=== PATIENT | female | born 1965 | race Caucasian/White ===

== ENCOUNTER → 2016-10-13 | Outpatient (REF) | payer OTHER ==
[~2016-10-13] MED LIST: /HCTZ25TA PO; ASPI81TA45 OR; BUPR150T5 PO; CALC-136 PO; CALCIUM/MAG/ZINC PO; CALCTAB92 PO; CYCL5TA PO; FLAXOIL3 PO; FLAXPOW PO; HYDR1OI TOP; HYDR25TA6 OR; LAMO25TA2 PO; LIDO1PAD EX; LISI-538 PO; MOBI7.5T10 PO; MULTIVIT PO; NUCY50TA PO; OMEP20TA7 OR; PERC5TAB8 OR; PERC7.5T8 OR; POTA20TA2 OR; PRIL20CA OR; PRIL20CA PO; TRAM50TA2 PO; TRIL1TAB PO; TYLE1TAB5 PO; TYLENOL PM PO; VALT500T PO; VITA250L PO; VITAD1000T PO; VYTO10TA5 OR; WELBUTRIN PO; WELL100T PO; XANA0.5T PO; [UNRECOGNIZED DRUG - CODE] PO
== END ==
LOC: M LAB REF 11:54
PROVIDERS: ATTEND Nurse Practitioner Family
DX: D51.9 Vitamin B12 deficiency anemia, unspecified (principal)

== ENCOUNTER → 2017-10-13 | Outpatient (REF) | payer OTHER ==
[2017-10-13 18:36] LABS: APPEARANCE, URINE CLEAR (CLEAR); BACTERIA, URINE AUTO NEGATIVE (NEGATIVE); BILIRUBIN, URINE AUTO NEGATIVE (NEGATIVE); BLOOD, URINE BLOOD 1+ (NEGATIVE); COLOR, URINE YELLOW (YELLOW); GLUCOSE, URINE (UA) AUTO NEGATIVE (NEGATIVE); KETONE, URINE AUTO NEGATIVE (NEGATIVE); LEUKOCYTE ESTERASE, URINE AUTO NEGATIVE (NEGATIVE); NITRITE, URINE AUTO NEGATIVE (NEGATIVE); PROTEIN, URINE AUTO NEGATIVE (NEGATIVE); RBC, URINE AUTO 0 /HPF (0-3); SPECIFIC GRAVITY URINE AUTO 1.008 (1.002-1.035); SQUAMOUS EPITHELIAL CELL UR AU 0 /HPF (0-6); UROBILINOGEN, URINE AUTO 0.2 mg/dL (0.0-2.0); WBC, URINE AUTO 0 /HPF (0-3)
== END ==
LOC: M LAB REF 16:28
DX: N39.0 Urinary tract infection, site not specified (principal)
CPT/HCPCS: 81001

== ENCOUNTER 2018-04-14 13:46 | Emergency (ER) | payer OTHER ==
[2018-04-14 14:59] LABS: HEMATOCRIT 41.4 % (36.0-47.0); HEMOGLOBIN 13.9 g/dl (12.0-15.5); MEAN CORPUSCULAR HEMOGLOBIN 28.4 pg (27.0-33.0); MEAN CORPUSCULAR HGB CONC 33.6 g/dl (32.0-36.5); MEAN CORPUSCULAR VOLUME 84.5 fl (80.0-96.0); PLATELET COUNT, AUTOMATED 250 10^3/uL (150-450); RED CELL DISTRIBUTION WIDTH 14.3 % (11.5-14.5); WHITE BLOOD COUNT 10.8 10^3/uL (4.0-10.0)
[2018-04-14 15:25] LABS: ANION GAP 8 MEQ/L (8-16); BLOOD UREA NITROGEN 14 MG/DL (7-18); CALCIUM LEVEL 9.6 MG/DL (8.5-10.1); CARBON DIOXIDE LEVEL 28 MEQ/L (21-32); CHLORIDE LEVEL 103 MEQ/L (98-107); CREATININE FOR GFR 0.69 MG/DL (0.55-1.30); GLOMERULAR FILTRATION RATE > 60.0 (>51); GLUCOSE, FASTING 110 MG/DL (70-100); POTASSIUM SERUM 3.9 MEQ/L (3.5-5.1); SODIUM LEVEL 139 MEQ/L (136-145)
[2018-04-14] MEDS ORDERED: KETOROLAC 30 MG/ML VIAL (J1885) IV (15:30)
[2018-04-14] MEDS: traMADol 50 MG TAB PO (16:47)
== END 2018-04-14 18:27 | disposition home or self-care (01) ==
LOC: M ED 13:46
DX: M54.5 Low back pain (principal); I10 Essential (primary) hypertension; M48.00 Spinal stenosis, site unspecified; K21.9 Gastro-esophageal reflux disease without esophagitis; F33.9 Major depressive disorder, recurrent, unspecified; Z79.899 Other long term (current) drug therapy; Z88.5 Allergy status to narcotic agent
CPT/HCPCS: 72131

== ENCOUNTER → 2019-03-07 | Outpatient (CLI) | payer OTHER ==
[~2019-03-07] MED LIST changes: -/HCTZ25TA PO; -CYCL5TA PO; +CYCL5TAB5 PO; +HYDR-3644 PO; -HYDR1OI TOP; +HYDR1OIN2 TOP; -LAMO25TA2 PO; +LAMO25TA4 PO; +MOBI4TAB PO; -MOBI7.5T10 PO
--- NOTE | 2019-03-07 11:28 | REPMRS ---
Patient History The patient states she had a clinical breast exam in 01/2019. Patient is nulliparous. No known family history of cancer. 3D TOMOSYNTHESIS WAS PERFORMED. [facility] for [facility] 11.8%. Digital Woman Screen Mammo: March 07, 2019 - Exam #: [id number] Bilateral CC and MLO view(s) were taken. Technologist: Nataly Galan, Technologist Prior study comparison: May 04, 2014, bilateral digital mammo screening bilat, performed at [facility]. October 21, 2010, bilateral digital mammo screening bilat, performed at [facility]. FINDINGS: The breast tissue is heterogeneously dense. This may lower the sensitivity of mammography. There has been no change in the appearance of the mammogram from the prior studies. There is a moderate amount of residual fibroglandular tissue which is fairly symmetric. There is no interval development of dominant mass, areas of architectural distortion, or clustered microcalcification typical of malignancy. Assessment: BI-RADS/ACR category 1 mammogram. Negative Mammogram. Recommendation Routine screening mammogram in 1 year (for women over age 40). This mammogram was interpreted with the aid of an FDA-approved computer-aided dectection system. Electronically Signed By: Jakob Brewer MD 03/07/19 0585
== END ==
LOC: M WHC 10:00
PROVIDERS: ATTEND Nurse Practitioner Family
DX: Z12.31 Encounter for screening mammogram for malignant neoplasm of breast (principal)

== ENCOUNTER → 2019-03-25 | Outpatient (REF) | payer OTHER ==
[2019-03-25 13:54] LABS: THYROGLOBULIN ANTIBODY 30.6 U/ML (<60.0); THYROID PEROXIDASE ANTIBODY < 28.0 U/ML (<60.0)
== END ==
LOC: M LAB REF 12:27
PROVIDERS: ATTEND Nurse Practitioner Family
DX: R13.10 Dysphagia, unspecified (principal)

== ENCOUNTER 2024-01-20 15:41 | Emergency (ER) | payer MEDICAID, OTHER ==
[~2024-01-20] VITALS: Ht 175.3 cm; Wt 83.2 kg
[~2024-01-20 15:41] MED LIST changes: +BUPR-71 PO; -BUPR150T5 PO; -LISI-538 PO; +LISI20TA33 PO
[2024-01-20] MEDS: NS 1,000 ML IV ONE (16:15)
[2024-01-20] MEDS: ONDANSETRON 4MG 2ML VIAL IV ONE (16:15)
[2024-01-20] MEDS ORDERED: ISOVUE-370 76% 100ML VIAL As Ordered ONE (16:28)
[2024-01-20 16:31] LABS: BASO % 0.3 % (0.0-1.0); EOS # 0.1 10^3/uL (0.0-0.5); EOS % 1.1 % (0.0-3.0); HEMATOCRIT 36.6 % (36.0-47.0); HEMOGLOBIN 12.8 g/dl (12.0-15.5); LYMPH # 1.7 10^3/uL (1.5-5.0); MEAN CORPUSCULAR HEMOGLOBIN 31.8 pg (27.0-33.0); MONO # 0.5 10^3/uL (0.0-0.8); MONO % 7.2 % (2.0-8.0); NEUTROPHILS # 4.4 10^3/uL (1.5-8.5); NEUTROPHILS % 66.1 % (36.0-66.0); PLATELET COUNT, AUTOMATED 159 10^3/uL (150-450); RED BLOOD COUNT 4.02 10^6/uL (4.00-5.40); WHITE BLOOD COUNT 6.6 10^3/uL (4.0-10.0)
[2024-01-20 16:57] LABS: ALBUMIN 4.3 G/DL (3.2-5.2); BILIRUBIN,DIRECT 0.1 MG/DL (<0.4); BILIRUBIN,TOTAL 0.4 MG/DL (0.3-1.2); CK-MB VALUE MASS 1.1 NG/ML (<3.6); MB/CK RELATIVE INDEX 1.39 (< OR =4); TOTAL PROTEIN 7.1 G/DL (5.7-8.2)
[2024-01-20] MEDS ORDERED: ONDA4TAB6 PO (17:46)
[2024-01-20] MEDS ORDERED: SIME180C25 PO (17:46)
[2024-01-20 17:49] LABS: CK-MB VALUE MASS < 1.0 NG/ML (<3.6)
[2024-01-20 18:00] VITALS: BP 121/86; TEMP 98; O2SAT 97
[2024-01-20] MEDS: SIMETHICONE 80MG CHEW TAB PO STA (18:00)
[2024-01-20 18:12] LABS: CPK CREATINE PHOSPHOKINASE 67 U/L (34-145); MB/CK RELATIVE INDEX 1.49 (< OR =4)
== END 2024-01-20 18:25 | disposition home or self-care (01) ==
LOC: EDBD 15:41 → M ED 15:41
DX: R11.2 Nausea with vomiting, unspecified (principal); K42.9 Umbilical hernia without obstruction or gangrene; K44.9 Diaphragmatic hernia without obstruction or gangrene; E11.9 Type 2 diabetes mellitus without complications; K21.9 Gastro-esophageal reflux disease without esophagitis; I10 Essential (primary) hypertension; F41.9 Anxiety disorder, unspecified; F32.A Depression, unspecified; Z88.8 Allergy status to other drugs, medicaments and biological substances; Z91.040 Latex allergy status; Z91.013 Allergy to seafood; Z79.899 Other long term (current) drug therapy
CPT/HCPCS: 70450; 74177; 80047; 80076; 82550; 82553; 83690; 84484; 85025; 93005; 93041; 96361; 96374; 99284; J2405; Q9967

== ENCOUNTER → 2024-05-04 | Outpatient (CLI) | payer MEDICAID, OTHER ==
[~2024-05-04] MED LIST changes: +ECOT81TA5 PO; +LISI20TA37; +NIRA200T PO; +ONDA-282 PO; +ONDA-284 PO; +PROC10TA5 PO; +SIME180C25 PO
== END ==
LOC: M WHC 13:56
PROVIDERS: ATTEND Specialist
DX: Z12.31 Encounter for screening mammogram for malignant neoplasm of breast (principal); R92.333 Mammographic heterogeneous density, bilateral breasts

== ENCOUNTER → 2024-05-09 | Outpatient (CLI) | payer OTHER ==
[~2024-05-09] MED LIST changes: +GASTROGRAFIN SOLUTION 30ML As Ordered ONE
== END ==
LOC: M RAD 11:16
PROVIDERS: ATTEND Specialist
DX: C56.9 Malignant neoplasm of unspecified ovary (principal)
CPT/HCPCS: 71250; 74176; Q9963

== ENCOUNTER → 2024-06-07 | Outpatient (CLI) | payer OTHER ==
[~2024-06-07] MED LIST changes: -GASTROGRAFIN SOLUTION 30ML As Ordered ONE; -SIME180C25 PO; +SIME1CAP4 PO
== END ==
LOC: M WHC 13:28
PROVIDERS: ATTEND Nurse Practitioner Family
DX: M81.0 Age-related osteoporosis without current pathological fracture (principal)

== ENCOUNTER → 2024-06-18 | Outpatient (REF) | payer OTHER | LOC: M LAB REF 16:40 | PROVIDERS: ATTEND Physician Assistant | DX: R10.30 Lower abdominal pain, unspecified (principal) ==

== ENCOUNTER 2024-06-25 11:19 | Inpatient (IN) | payer OTHER ==
[~2024-06-25 11:19] MED LIST changes: -LISI20TA37; +LISI20TA37 PO
[2024-06-25] MEDS: HYDROMORPHONE HCL 0.5 MG/ 0.5 ML SYRINGE IV PRN (11:52)
[2024-06-25] MEDS: METOCLOPRAMIDE INJ 10MG/2ML VIAL IV ONE ×2 (11:52→18:42)
[2024-06-25 11:56] LABS: BASO % 0.3 % (0.0-1.0); EOS # 0.1 10^3/uL (0.0-0.5); EOS % 1.2 % (0.0-3.0); HEMATOCRIT 38.7 % (36.0-47.0); HEMOGLOBIN 13.4 g/dl (12.0-15.5); LYMPH # 2.3 10^3/uL (1.5-5.0); MEAN CORPUSCULAR HEMOGLOBIN 33.5 pg (27.0-33.0); MEAN CORPUSCULAR HGB CONC 34.6 g/dl (32.0-36.5); MEAN CORPUSCULAR VOLUME 96.8 fl (80.0-96.0); MONO # 0.4 10^3/uL (0.0-0.8); MONO % 7.5 % (2.0-8.0); NEUTROPHILS # 2.9 10^3/uL (1.5-8.5); NEUTROPHILS % 50.8 % (36.0-66.0); PLATELET COUNT, AUTOMATED 199 10^3/uL (150-450); WHITE BLOOD COUNT 5.7 10^3/uL (4.0-10.0)
[2024-06-25 12:09] LABS: INR 0.91; PROTHROMBIN TIME 12.5 SECONDS (12.5-14.5)
[2024-06-25 12:27] LABS: LIPASE 33 U/L (12-53)
[2024-06-25] MEDS ORDERED: ISOVUE-370 76% 100ML VIAL As Ordered ONE (12:28)
[2024-06-25 12:29] LABS: ALBUMIN 4.1 G/DL (3.2-5.2); ALKALINE PHOSPHATASE 112 U/L (35-104); ALT/SGPT 19 U/L (7.0-40); AST/SGOT 13 U/L (<34); BILIRUBIN,DIRECT < 0.1 MG/DL (<0.4); BILIRUBIN,TOTAL 0.4 MG/DL (0.3-1.2); BLOOD UREA NITROGEN 17 MG/DL (9-23); CALCIUM LEVEL 10.5 MG/DL (8.3-10.6); CARBON DIOXIDE LEVEL 28 MMOL/L (20-31); CHLORIDE LEVEL 99 MMOL/L (98-107); CREATININE FOR GFR 0.74 MG/DL (0.55-1.30); GLOMERULAR FILTRATION RATE > 60.0 (>45); GLUCOSE, FASTING 97 MG/DL (74-106); POTASSIUM SERUM 3.9 MMOL/L (3.5-5.1); SODIUM LEVEL 136 MMOL/L (136-145); TOTAL PROTEIN 7.6 G/DL (5.7-8.2)
[2024-06-25] MEDS ORDERED: ALPR0.5T3 PO (13:30)
[2024-06-25] MEDS ORDERED: ONDA-284 PO (13:30)
[2024-06-25] MEDS ORDERED: TIZA10TA PO (13:30)
[2024-06-25] MEDS ORDERED: PROM50TA4 PO (13:30)
[2024-06-25] MEDS ORDERED: LIDO1PAD TOP (13:30)
[2024-06-25] MEDS ORDERED: HOME MED LIST COMPLETE! XX SCH (13:30)
[2024-06-25] MEDS ORDERED: TRAM50TA2 PO (13:30)
[2024-06-25] MEDS ORDERED: BUPR-597 PO (13:30)
[2024-06-25] MEDS ORDERED: DICY1CAP8 PO (13:30)
[2024-06-25] MEDS ORDERED: PERCTAB2 PO (13:30)
[2024-06-25] MEDS ORDERED: OMEP1CAP73 PO (13:30)
[2024-06-25] MEDS ORDERED: CHOL25TA9 PO (13:30)
[2024-06-25] MEDS ORDERED: SIME1CAP4 PO (13:30)
[2024-06-25] MEDS ORDERED: PROC10TA5 PO (13:30)
[2024-06-25] MEDS: NS 1,000 ML IV ONE (14:34)
[2024-06-25] MEDS ORDERED: HYDROMORPHONE HCL 0.5 MG/ 0.5 ML SYRINGE IV PRN (14:50)
[2024-06-25] MEDS ORDERED: GLUCOSE 4 GM CHEW PO PRN (14:50)
[2024-06-25] MEDS ORDERED: GLUCAGON INJ 1MG VIAL SC PRN (14:50)
[2024-06-25] MEDS ORDERED: NALOXONE INJ 0.4MG/1ML VIAL IV PRN (14:50)
[2024-06-25] MEDS ORDERED: DEXTROSE 50% 50ML SYRINGE IV PRN (14:50)
[2024-06-25] MEDS: NS 1,000 ML IV SCH (15:48)
[2024-06-25 16:15] VITALS: BP 113/80; TEMP 97; O2SAT 98
[2024-06-25] MEDS: ONDANSETRON 4MG 2ML VIAL IV ONE (18:00)
[2024-06-25] MEDS: ACETAMINOPHEN *IV* 1,000 MG in IV 1 EA IV ONE (18:42)
[2024-06-25 20:12] VITALS: BP 118/58; TEMP 97.3; O2SAT 96
[2024-06-25] MEDS: SUMAtriptan SUCCINATE 6MG/0.5ML VIAL SC ONE (20:23)
[2024-06-25] MEDS ORDERED: ONDANSETRON 4MG 2ML VIAL IV PRN (21:00)
[2024-06-26 03:35] VITALS: BP 108/48; TEMP 97.5; O2SAT 95
[2024-06-26] MEDS ORDERED: MILKSUS3 PO (11:53)
[2024-06-26] MEDS ORDERED: DULC10SU2 PR (11:53)
[2024-06-26] MEDS ORDERED: SENO8.6T10 PO (11:53)
== END 2024-06-26 13:26 | disposition home or self-care (01) | DRG 254 ==
LOC: M ED 11:19 → M ED INP 13:52 → M MSPAV 16:08
PROVIDERS: ADMIT General Practice; ATTEND General Practice
DX: K43.6 Other and unspecified ventral hernia with obstruction, without gangrene (principal); E87.20 Acidosis, unspecified; I10 Essential (primary) hypertension; K59.00 Constipation, unspecified; Z85.44 Personal history of malignant neoplasm of other female genital organs; Z87.891 Personal history of nicotine dependence; Z90.722 Acquired absence of ovaries, bilateral; Z90.49 Acquired absence of other specified parts of digestive tract; Z79.82 Long term (current) use of aspirin; Z79.899 Other long term (current) drug therapy; Z88.6 Allergy status to analgesic agent; Z88.5 Allergy status to narcotic agent; Z88.8 Allergy status to other drugs, medicaments and biological substances; Z91.013 Allergy to seafood; Z91.040 Latex allergy status

== ENCOUNTER → 2024-08-31 | Outpatient (CLI) | payer OTHER ==
[~2024-08-31] MED LIST changes: +ALPR0.5T3 PO; +BUPR-597 PO; +CHOL25TA9 PO; +DICY1CAP8 PO; +DULC10SU2 PR; +ISOVUE-370 76% 100ML VIAL As Ordered ONE; +LIDO1PAD TOP; +MILKSUS3 PO; +OMEP1CAP73 PO; +PERCTAB2 PO; +PROM50TA4 PO; +SENO8.6T10 PO; +TIZA10TA PO
== END ==
LOC: M RAD 11:06
PROVIDERS: ATTEND Internal Medicine Medical Oncology
DX: C56.9 Malignant neoplasm of unspecified ovary (principal)
CPT/HCPCS: 71260; 74177; Q9967

== ENCOUNTER → 2025-04-11 | Outpatient (CLI) | payer OTHER ==
[~2025-04-11] MED LIST changes: -BUPR-597 PO; +BUPR-766 PO; -ISOVUE-370 76% 100ML VIAL As Ordered ONE; +LAMO-18 PO; -LAMO25TA4 PO
[2025-04-11 10:13] LABS: BASO # 0.0 10^3/uL (0.0-0.2); BASO % 0.2 % (0.0-1.0); EOS # 0.1 10^3/uL (0.0-0.5); EOS % 1.9 % (0.0-3.0); LYMPH # 1.7 10^3/uL (1.5-5.0); LYMPH % 35.0 % (24.0-44.0); MONO # 0.3 10^3/uL (0.0-0.8); MONO % 5.6 % (2.0-8.0); NEUTROPHILS # 2.8 10^3/uL (1.5-8.5); NEUTROPHILS % 57.1 % (36.0-66.0); PLATELET COUNT, AUTOMATED 187 10^3/uL (150-450)
[2025-04-11 10:52] LABS: ALT/SGPT 22.0 U/L (7.0-40); AST/SGOT 23.0 U/L (<34); CALCIUM LEVEL 8.8 MG/DL (8.3-10.6); CARBON DIOXIDE LEVEL 32.0 MMOL/L (20-31); CHLORIDE LEVEL 99.0 MMOL/L (98-107); CHOLESTEROL LEVEL 242.0 MG/DL (<200); CHOLESTEROL RISK RATIO 7.11 (<5); CREATININE FOR GFR 0.85 MG/DL (0.55-1.30); GLOMERULAR FILTRATION RATE 78.4 (>45); LDL CHOLESTEROL 141.2 MG/DL (<100); NON-HDL-C 208.0 MG/DL; POTASSIUM SERUM 4.2 MMOL/L (3.5-5.1); SODIUM LEVEL 141.0 MMOL/L (136-145); TRIGLYCERIDES LEVEL 334.0 MG/DL (<150)
[2025-04-11 10:54] LABS: FREE T4 1.01 NG/DL (0.89-1.76)
[2025-04-11 11:12] LABS: ESTIMATED AVERAGE GLUCOSE 126.0 MG/DL (60-110)
== END ==
LOC: M LAB 09:30
PROVIDERS: ATTEND Nurse Practitioner Family
DX: E11.9 Type 2 diabetes mellitus without complications (principal)

== ENCOUNTER 2025-05-26 12:23 | Emergency (ER) | payer OTHER ==
[~2025-05-26] VITALS: Ht 175.3 cm; Wt 93.1 kg
[2025-05-26 13:05] LABS: BASO # 0.0 10^3/uL (0.0-0.2); BASO % 0.3 % (0.0-1.0); EOS # 0.1 10^3/uL (0.0-0.5); EOS % 0.8 % (0.0-3.0); LYMPH # 2.5 10^3/uL (1.5-5.0); LYMPH % 34.7 % (24.0-44.0); MONO # 0.5 10^3/uL (0.0-0.8); MONO % 7.2 % (2.0-8.0); NEUTROPHILS # 4.0 10^3/uL (1.5-8.5); NEUTROPHILS % 56.6 % (36.0-66.0); PLATELET COUNT, AUTOMATED 221 10^3/uL (150-450)
[2025-05-26] MEDS: NS (Normal Saline) 0.9% 1,000 ML IV ONE (13:20)
[2025-05-26] MEDS ORDERED: ISOVUE-370 76% 100 ML VIAL As Ordered ONE (13:37)
[2025-05-26 13:41] LABS: ALT/SGPT 23 U/L (7.0-40); AST/SGOT 25 U/L (<34)
[2025-05-26 14:14] LABS: KETONE, URINE AUTO RFX NEGATIVE (NEGATIVE); LEUKOCYTE ESTERASE UR AUTO RFX NEGATIVE (NEGATIVE); NITRITE, URINE AUTO RFX NEGATIVE (NEGATIVE); RBC, URINE AUTO RFX 0 /HPF (0-3); SQUAM EPITHELIAL CELL UR AURFX 0 /HPF (0-6); WBC, URINE AUTO RFX 0 /HPF (0-3)
[2025-05-26] MEDS: KETOROLAC 30 MG/ML 1 ML VIAL IV ONE (15:19)
[2025-05-26] MEDS: ONDANSETRON 4MG 2ML VIAL IV ONE (15:19)
[2025-05-26 16:02] VITALS: BP 132/77; TEMP 97.8; O2SAT 97
[2025-05-30] MEDS ORDERED: NIRA200T PO (11:06)
== END 2025-05-26 16:14 | disposition home or self-care (01) ==
LOC: M ED 12:23
DX: R10.32 Left lower quadrant pain (principal); K43.9 Ventral hernia without obstruction or gangrene; Z88.5 Allergy status to narcotic agent; Z88.8 Allergy status to other drugs, medicaments and biological substances; Z91.040 Latex allergy status; Z91.013 Allergy to seafood; Z79.1 Long term (current) use of non-steroidal anti-inflammatories (NSAID); Z79.899 Other long term (current) drug therapy
CPT/HCPCS: 74177; 80047; 80076; 81001; 83690; 85025; 96361; 96374; 99284; J1885; J2405; Q9967

== ENCOUNTER → 2025-06-30 | Outpatient (CLI) | payer OTHER ==
[~2025-06-30] MED LIST changes: +PROHANCE 279.3MG/ML 15ML VIAL As Ordered ONE; +PROHANCE 279.3MG/ML 5ML VIAL As Ordered ONE
== END ==
LOC: M RAD 14:18
DX: C57.00 Malignant neoplasm of unspecified fallopian tube (principal); D73.89 Other diseases of spleen; K43.9 Ventral hernia without obstruction or gangrene
CPT/HCPCS: 74183; A9579

== ENCOUNTER → 2025-07-10 | Outpatient (CLI) | payer OTHER ==
[~2025-07-10] MED LIST changes: +ARIP1TAB6 PO; -PROHANCE 279.3MG/ML 15ML VIAL As Ordered ONE; -PROHANCE 279.3MG/ML 5ML VIAL As Ordered ONE; +TRUL10IN; +[UNRECOGNIZED DRUG - OTHER]; +[UNRECOGNIZED DRUG - OTHER]
[2025-07-10 15:18] LABS: FREE T4 0.98 NG/DL (0.89-1.76); THYROXINE (T4) 7.2 UG/DL (4.5-10.9)
[2025-07-10 15:19] LABS: THYROID PEROXIDASE ANTIBODY 30.0 U/ML (<60.0)
[2025-07-10 15:20] LABS: T UPTAKE 24.1 % (22.5-37.0)
== END ==
LOC: M LAB 14:04
PROVIDERS: ATTEND Nurse Practitioner Family
DX: R63.5 Abnormal weight gain (principal); Z83.49 Family history of other endocrine, nutritional and metabolic diseases; R53.83 Other fatigue

== ENCOUNTER 2025-07-17 09:50 | Day surgery (SDC) | payer OTHER ==
[~2025-07-17] VITALS: Ht 175.3 cm; Wt 93.0 kg
[2025-07-17] MEDS ORDERED: LIDOCAINE 2% 100 MG/5 ML SDV (FOR ANES.) As Ordered ONE (10:59)
[2025-07-17 11:40] VITALS: TEMP 98
[2025-07-17 12:08] VITALS: BP 123/62; O2SAT 97
== END 2025-07-17 12:09 | disposition home or self-care (01) ==
LOC: M OPP 09:50
PROVIDERS: ATTEND Internal Medicine Gastroenterology
DX: Z12.11 Encounter for screening for malignant neoplasm of colon (principal); K64.8 Other hemorrhoids; K29.50 Unspecified chronic gastritis without bleeding; R10.13 Epigastric pain; Z88.5 Allergy status to narcotic agent; Z88.6 Allergy status to analgesic agent; Z88.8 Allergy status to other drugs, medicaments and biological substances; Z91.040 Latex allergy status; Z91.013 Allergy to seafood; Z79.82 Long term (current) use of aspirin; Z79.899 Other long term (current) drug therapy
CPT/HCPCS: 43239; 45378; 88305; J3010

== ENCOUNTER 2025-08-15 10:42 | Emergency (ER) | payer OTHER ==
[~2025-08-15] VITALS: Ht 175.3 cm; Wt 92.3 kg
[2025-08-15 11:40] LABS: BASO # 0.0 10^3/uL (0.0-0.2); BASO % 0.4 % (0.0-1.0); EOS # 0.1 10^3/uL (0.0-0.5); EOS % 1.1 % (0.0-3.0); LYMPH # 0.5 10^3/uL (1.5-5.0); LYMPH % 9.4 % (24.0-44.0); MONO # 0.5 10^3/uL (0.0-0.8); MONO % 8.9 % (2.0-8.0); NEUTROPHILS # 4.2 10^3/uL (1.5-8.5); NEUTROPHILS % 79.8 % (36.0-66.0); PLATELET COUNT, AUTOMATED 167 10^3/uL (150-450)
[2025-08-15] MEDS: IBUPROFEN 800 MG TAB PO ONE (11:55)
[2025-08-15 12:07] LABS: CALCIUM LEVEL 9.1 MG/DL (8.3-10.6); CARBON DIOXIDE LEVEL 30 MMOL/L (20-31); CHLORIDE LEVEL 98 MMOL/L (98-107); CREATININE FOR GFR 0.70 MG/DL (0.55-1.30); GLOMERULAR FILTRATION RATE > 90.0 (>45); POTASSIUM SERUM 4.0 MMOL/L (3.5-5.1); SODIUM LEVEL 138 MMOL/L (136-145)
[2025-08-15] MEDS: BENZONATATE 100 MG CAPSULE PO ONE (12:30)
[2025-08-15 13:28] LABS: KETONE, URINE AUTO RFX NEGATIVE (NEGATIVE); LEUKOCYTE ESTERASE UR AUTO RFX NEGATIVE (NEGATIVE); MUCUS, URINE RFX SMALL (NEGATIVE); NITRITE, URINE AUTO RFX NEGATIVE (NEGATIVE); RBC, URINE AUTO RFX 2 /HPF (0-3); SQUAM EPITHELIAL CELL UR AURFX 0 /HPF (0-6); WBC, URINE AUTO RFX 0 /HPF (0-3)
[2025-08-15] MEDS ORDERED: BENZ200C70 PO (13:52)
[2025-08-15] MEDS ORDERED: VENTAER INH (13:52)
[2025-08-15 14:04] VITALS: BP 128/62; TEMP 98.6; O2SAT 95
== END 2025-08-15 14:11 | disposition home or self-care (01) ==
LOC: M ED 10:42 → EDBD 10:42 → M ED 14:11
DX: J09.X2 Influenza due to identified novel influenza A virus with other respiratory manifestations (principal); I10 Essential (primary) hypertension; Z88.5 Allergy status to narcotic agent; Z88.8 Allergy status to other drugs, medicaments and biological substances; Z91.040 Latex allergy status; Z91.013 Allergy to seafood; Z79.1 Long term (current) use of non-steroidal anti-inflammatories (NSAID); Z79.51 Long term (current) use of inhaled steroids; Z79.899 Other long term (current) drug therapy; Z79.2 Long term (current) use of antibiotics